=== PATIENT | female | born 1995 | race Caucasian/White ===

== ENCOUNTER 2023-10-16 12:35 | Emergency (ER) | payer OTHER ==
[~2023-10-16] VITALS: Ht 160 cm; Wt 72.6 kg
[2023-10-16 12:40] VITALS: BP_SYST 118; PULSE 80; RESP 17; TEMP 98; O2SAT 98
[2023-10-16] MEDS ORDERED: NIRM1TAB PO ×2 (13:39→13:40)
== END 2023-10-16 13:02 | disposition home or self-care (01) ==
LOC: SED 12:35
DX: U07.1 COVID-19 (principal); R05.9 Cough, unspecified; R50.9 Fever, unspecified; Z79.899 Other long term (current) drug therapy
CPT/HCPCS: 36415; 99283